=== PATIENT | male | born 1960 | race Caucasian/White ===

== ENCOUNTER 2017-12-25 08:50 | Outpatient (CLI) | payer BC ==
--- NOTE | 2017-12-25 11:37 | MRI ---
MRI OF THE RIGHT HSOULDER WITHOUT CONTRAST: INDICATION: Right shoulder pain and limited range of motion. COMPARISON: Right shoulder radiograph dated 11/23/17. FINDINGS: There is a partial thickness articular surface tear involving the posterior infraspinatus at the foot print measuring 1.7 cm greatest mediolateral dimension and approximately 1.1 cm greatest AP dimension . This is best seen on image 18 of series 4 and image 6 of series 6. There is undersurface irregula rity involving the anterior infraspinatus at the footprint. There is moderate tendinosis of the supr aspinatus and infraspinatus. There is prominent tendinosis of the long head of the biceps tendon. T here is prominent degenerative fraying of the glenoid labrum. There is a fairly prominent SLAP tear running from approximately the 3 o'clock through the 7 o'clock position. There is moderate to severe glenoid and humeral head chondrosis with marginal osteophytes. There is mild AC joint osteoarthrosi s. No muscular atrophy is evident. IMPRESSION: There are multiple small paralabral cysts seen along the anterior inferior margin of the glenoid jean-claude uring approximately 4 mm in size. There are at least separate 3-4 mm paralabral cysts seen along the anterior inferior aspect of the glenoid. IMPRESSION: 1. Moderate osteoarthrosis of the glenohumeral joint with prominent degenerative-type tearing of the glenoid labrum. There are paralabral cysts seen along the anterior inferior and inferior margin of the glenoid. 2. Partial-thickness articular surface tear involving the posterior infraspinatus at the footprint. This is a low-grade tear involving approximately 1/3 of the tendon thickness. 3. There is moderate to prominent undersurface irregularity involving the anterior supraspinatus at the footprint. 4. Moderate tendinosis of the supraspinatus. 5. Mild acromioclavicular joint osteoarthrosis. 6. Prominent tendinosis of the long head of the biceps tendon. POS: [facility]
== END 2017-12-25 08:51 | disposition home or self-care (01) ==
LOC: TBSIIMAG 08:50
PROVIDERS: ATTEND Family Medicine
DX: M25.511 Pain in right shoulder (principal); M19.011 Primary osteoarthritis, right shoulder; S43.491A Other sprain of right shoulder joint, initial encounter; M85.611 Other cyst of bone, right shoulder; M75.81 Other shoulder lesions, right shoulder

== ENCOUNTER 2023-10-21 07:04 | Outpatient (CLI) | payer MEDICARE ==
[2023-10-21] MEDS ORDERED: Iopamidol 370 76% 100 ML VIAL ONE (14:54)
== END 2023-10-21 07:05 | disposition home or self-care (01) ==
LOC: CT 07:04
PROVIDERS: ATTEND Urology
DX: C61 Malignant neoplasm of prostate (principal); C79.51 Secondary malignant neoplasm of bone; N28.1 Cyst of kidney, acquired; C77.9 Secondary and unspecified malignant neoplasm of lymph node, unspecified
CPT/HCPCS: 74178; 78306; 82565; A9503